=== PATIENT | female | born 1995 | race Caucasian/White ===

== ENCOUNTER 2023-08-02 09:22 | Day surgery (SDC) | payer BC ==
[2023-08-01 09:42] VITALS: BMI 38.0
[2023-08-02] MEDS ORDERED: Acetaminophen 500 MG TAB ONE (10:08)
[2023-08-02] MEDS ORDERED: Ketorolac Tromethamine 30 MG (1 mL) VIAL ONE (10:08)
[2023-08-02] MEDS ORDERED: Midazolam HCl 2 mg/2 ml Vial ONE (11:18)
[2023-08-02] MEDS ORDERED: PROPOFOL 20 ML ONE (11:18)
[2023-08-02] MEDS ORDERED: fentaNYL 50 mcg/mL 1 mL Vial ONE ×2 (11:18→13:29)
[2023-08-02] MEDS ORDERED: Rocuronium Bromide 10 MG/ML (10ML VIAL) ONE (11:19)
[2023-08-02] MEDS ORDERED: Ondansetron PF 4 MG/2 ML Vial ONE (11:19)
[2023-08-02] MEDS ORDERED: Lidocaine 1% PF 5 ML VIAL ONE (11:19)
[2023-08-02] MEDS ORDERED: Dexamethasone 4 mg/ml Vial ONE (11:19)
[2023-08-02] MEDS ORDERED: EPINEPHrine 1 MG/ML VIAL ONE (11:20)
[2023-08-02] MEDS ORDERED: Bupivacaine 0.25% HCL 30 ML VIAL ONE (11:20)
[2023-08-02] MEDS ORDERED: CEFAZOLIN 2 GM VIAL ONE (11:28)
[2023-08-02] MEDS ORDERED: Sodium Chloride 0.9% 100 ML ONE (11:28)
[2023-08-02] MEDS ORDERED: SUGAMMADEX SODIUM 200 MG/2 ML VIAL ONE (12:22)
== END 2023-08-02 14:33 | disposition home or self-care (01) ==
LOC: SDC 09:22
PROVIDERS: ATTEND Specialist
PROC: 0FT44ZZ Resection of Gallbladder, Percutaneous Endoscopic Approach (ICD-10-PCS; principal; 2023-08-02)
DX: K80.10 Calculus of gallbladder with chronic cholecystitis without obstruction (principal); Z91.018 Allergy to other foods
CPT/HCPCS: 88304; C1889; J0171; J1100; J1885; J2250; J2405; J2704; J3010; J3490; S0020